=== PATIENT | male | born 1965 | race Caucasian/White ===

== ENCOUNTER 2019-03-18 07:20 | Inpatient (IN) ==
--- NOTE | 2019-03-05 14:48 | PAT Medication Instructions ---
Medication Instructions Date of Service March 05, 2019 Home Medications acetaminophen [Tylenol] 975 mg PO UD PRN 03/04/19 [History Confirmed 03/04/19] carbidopa-levodopa 1 tab PO TID 03/04/19 [History Confirmed 03/04/19] carvedilol 6.25 mg PO BID 03/04/19 [History Confirmed 03/04/19] cholecalciferol (vitamin D3) [Vitamin D3] 2,000 unit PO QAM 03/04/19 [History Confirmed 03/04/19] cyanocobalamin (vitamin B-12) 1,000 mcg IM MONTHLY 03/04/19 [History Confirmed 03/04/19] diphenhydramine HCl [Sleep Aid (diphenhydramine)] 50 mg PO HS 03/04/19 [History Confirmed 03/04/19] ferrous sulfate [iron] 325 mg PO QAM 03/04/19 [History Confirmed 03/04/19] ibuprofen 800 mg PO UD PRN 03/04/19 [History Confirmed 03/04/19] lisinopril 40 mg PO QPM 03/04/19 [History Confirmed 03/04/19] ropinirole 3 mg PO TID 03/04/19 [History Confirmed 03/04/19] rosuvastatin 10 mg PO QAM 03/04/19 [History Confirmed 03/04/19] ASK your surgeon for instructions ibuprofen 800 mg PO UD PRN 03/04/19 [History Confirmed 03/04/19] STOP taking 24 hours before surgery ropinirole 3 mg PO TID 03/04/19 [History Confirmed 03/04/19] DO NOT take the morning of surgery cholecalciferol (vitamin D3) [Vitamin D3] 2,000 unit PO QAM 03/04/19 [History Confirmed 03/04/19] cyanocobalamin (vitamin B-12) 1,000 mcg IM MONTHLY 03/04/19 [History Confirmed 03/04/19] ferrous sulfate [iron] 325 mg PO QAM 03/04/19 [History Confirmed 03/04/19] Take morning of surgery With a small sip of water, OTHERWISE NOTHING TO EAT OR DRINK AFTER MIDNIGHT: acetaminophen [Tylenol] 975 mg PO UD PRN (okay to take up to 4 hours prior to surgery if needed) carbidopa-levodopa 1 tab PO TID 03/04/19 [History Confirmed 03/04/19] carvedilol 6.25 mg PO BID 03/04/19 [History Confirmed 03/04/19] rosuvastatin 10 mg PO QAM 03/04/19 [History Confirmed 03/04/19] Take evening before surgery acetaminophen [Tylenol] 975 mg PO UD PRN (if needed) carbidopa-levodopa 1 tab PO TID 03/04/19 [History Confirmed 03/04/19] carvedilol 6.25 mg PO BID 03/04/19 [History Confirmed 03/04/19] diphenhydramine HCl [Sleep Aid (diphenhydramine)] 50 mg PO HS 03/04/19 [History Confirmed 03/04/19] lisinopril 40 mg PO QPM 03/04/19 [History Confirmed 03/04/19] Other Notes If you have any questions please call us at [phone] or [phone] or [phone] or [phone]
--- NOTE | 2019-03-06 11:01 | Anesthesiology Consultation ---
Date of Service March 06, 2019 Assessment & Plan (1) Encounter for pre-operative examination: Chart Review Chart Review: Acceptable Risk for Surgery and Patient seen in Pre Admission Testing Teaching & Discussion Pre-Anesthesia Teaching/Discussion Notes: Instructed NPO after midnight before surgery,except medications with 15 cc of water. Medication instructions provided according to the PAT guidelines. History Surgery Operation Date: 03/25/19 10:25 Proposed Procedures p L4-S1 Decompression and Fusion, Spinal Cord Monitoring - Neto Collazo DO Height/Weight Height: 5 ft 11 in Weight: 115.6 kg Allergies Allergy/AdvReac Type Severity Reaction Status Date / Time Penicillins Allergy Unknown HIVES AND Verified 03/06/19 11:16 PRURITUS "INJECTABLE DYE" Allergy Unknown PRURITUS Uncoded 03/06/19 11:16 Medications Home Medications Medication Instructions Recorded Confirmed Last Taken acetaminophen [Tylenol] 975 mg PO UD PRN 03/04/19 03/04/19 Unknown carbidopa-levodopa 1 tab PO TID 03/04/19 03/04/19 03/04/19 carvedilol 6.25 mg PO BID 03/04/19 03/04/19 03/04/19 cholecalciferol (vitamin D3) 2,000 unit PO QAM 03/04/19 03/04/19 Unknown [Vitamin D3] cyanocobalamin (vitamin B-12) 1,000 mcg IM MONTHLY 03/04/19 03/04/19 Unknown diphenhydramine HCl [Sleep Aid 50 mg PO HS 03/04/19 03/04/19 Unknown (diphenhydramine)] ferrous sulfate [iron] 325 mg PO QAM 03/04/19 03/04/19 Unknown ibuprofen 800 mg PO UD PRN 03/04/19 03/04/19 Unknown lisinopril 40 mg PO QPM 03/04/19 03/04/19 Unknown ropinirole 3 mg PO TID 03/04/19 03/04/19 03/04/19 rosuvastatin 10 mg PO QAM 03/04/19 03/04/19 Unknown Past Medical History Medical History Borderline high blood pressure Borderline high cholesterol Herniated disc lumbar Obesity Restless leg syndrome Spinal stenosis neck Exercise / Class Metabolic Activity II 4-5 Yardwork/Stairs/Walk up hill Past Family History Family History Mother Family history of multiple myeloma Family history of COPD (chronic obstructive pulmonary disease) Father Family history of colon cancer Other Patient's father is Past Surgical History Surgical History History of colonoscopy History of tonsillectomy Past Anesthesia History Other "Awareness" with colonoscopy History of PONV No Hx of PONV and Hx of Motion Sickness Social History Smoking Status: Former smoker tobacco type: cigarettes Do You Dip or Chew Tobacco: No (HX OF QUIT 21 YR AGO) Smoking End Date: Quit 25 YR AGO Hx Alcohol Use: Yes Alcohol type: beer alcohol intake frequency: a few times a week Hx Substance Use: No substance use type: does not use Review of Systems Patient denies chest pain, shortness of breath, dyspnea on exertion, cough, wheezing, palpitations. Physical Exam Vital Signs VITALS BP 129/84 P 61 TEMP 97.9 SP02 99%RA RESP 18 PHYSICAL Full neck and c-spine range of motion. Full TMJ range of motion. TMD 4 finger breaths Mallampati Score 2 Dentition: missing side/molar, caps on molars, upper front ?caps Lungs: clear throughout to auscultation Cardiac: regular rate and rhythm, no murmurs noted Spine: normal Carotid arteries: negative bruit Extremities: no edema Testing Laboratory Results 03/06/19 11:19 03/06/19 11:19 PT 9.8 Seconds (9.0-12.0) 03/06/19 11:19 INR 1.0 (0.9-1.1) 03/06/19 11:19 APTT 25.0 Seconds (21.0-31.0) 03/06/19 11:19 Urine Color Yellow 03/06/19 11:19 Urine Appearance Clear (Clear) 03/06/19 11:19 Urine pH 7.0 (4.5-7.5) 03/06/19 11:19 Ur Specific [place] 1.015 (1.000-1.030) 03/06/19 11:19 Urine Protein Negative (Negative) 03/06/19 11:19 Urine Glucose (UA) Negative (Negative) 03/06/19 11:19 Urine Ketones Negative (Negative) 03/06/19 11:19 Urine Nitrite Negative (Negative) 03/06/19 11:19 Ur Leukocyte Esterase Negative (Negative) 03/06/19 11:19 Blood Type A Positive 03/06/19 11:19 Antibody Screen NEGATIVE 03/06/19 11:19 Electrocardiogram Date: 03/06/19 Findings: + SB @ (54) Chest X-Ray Date: 03/06/19 Findings: + NAD
--- NOTE | 2019-03-06 11:49 | XRay Report ---
XR chest Pre-admission PA/Lat CLINICAL HISTORY: 53 years-old Male presenting with preoperative assessment. TECHNIQUE: PA and lateral views of the chest were obtained. COMPARISON: None. FINDINGS: Cardiac silhouette top normal in size. Lungs and pleural spaces clear. Degenerative changes of the th oracic spine. Upper abdomen normal. IMPRESSION: 1. No acute cardiopulmonary disease. ACT 112: Negative or not required by law. Electronically signed by: Abelardo Hernandez M.D. 03/06/2019 11:48 AM
[2019-03-06 13:50] LABS: Basophils # (auto) 0.04 K/uL (0-0.2); Basophils % (auto) 0.6 %; Eosinophils # (auto) 0.29 K/uL (0-0.5); Eosinophils % (auto) 4.1 %; Hemoglobin 14.2 g/dL (14.0-18.0); Immature Granulocytes # (auto) 0.01 K/uL (0.00-0.02); Immature Granulocytes % (auto) 0.1 %; Lymphocytes # (auto) 1.94 K/uL (1.2-3.4); Lymphocytes % (auto) 27.8 %; Mean Corpuscular Hemoglobin 29.7 pg (25-34); Mean Platelet Volume 10.9 fL (7.4-10.4); Monocytes # (auto) 0.53 K/uL (0.11-0.59); Monocytes % (auto) 7.6 %; Neutrophils # (auto) 4.18 K/uL (1.4-6.5); Neutrophils % (auto) 59.8 %; Platelet Count 257 K/uL (130-400); RDW Coefficient of Variation 13.3 % (11.5-14.5); RDW Standard Deviation 43.9 fL (36.4-46.3); Red Blood Count 4.78 M/uL (4.7-6.1); White Blood Count 6.99 K/uL (4.8-10.8)
[2019-03-06 13:52] LABS: Partial Thromboplastin Ratio 0.9; Prothrombin Time 9.8 Seconds (9.0-12.0)
[2019-03-06 13:53] LABS: BUN Creatinine Ratio 19.6 (10-20); Calcium 9.2 mg/dl (8.5-10.1); Creatinine Clr Calc Pharmacy 144.9 ml/min; Est GFR (African American) 121.1; Est GFR (Non-African American) 104.5; Potassium 4.3 mmol/L (3.5-5.1)
[2019-03-06 14:10] LABS: Appearance Urine Clear (Clear); Bilirubin Urine Negative (Negative); Blood Urine Negative (Negative); Color Urine Yellow; Glucose Urine UA Negative (Negative); Ketones Urine Negative (Negative); Leukocyte Esterase Urine Negative (Negative); Nitrite Urine Negative (Negative); Protein Urine Negative (Negative); Specific Gravity Urine 1.015 (1.000-1.030); Urobilinogen Urine Negative (Negative)
--- NOTE | 2019-03-07 06:03 | Electrocardiogram Report ---
Test Reason : Blood Pressure : / mmHG Vent. Rate : 054 BPM Atrial Rate : 054 BPM P-R Int : 166 ms QRS Dur : 082 ms QT Int : 442 ms P-R-T Axes : 059 051 053 degrees QTc Int : 419 ms Sinus bradycardia Otherwise normal ECG No previous ECGs available Confirmed by Rik Jimenez ([id number]) on 03/07/2019 6:02:58 AM Referred By: Neto Collazo Confirmed By:Rik Jimenez
[~2019-03-18 07:20] MED LIST: CEFAZOLIN 2000MG 2,000 MG/15 ML SYR IV SCH; CLINDAMYCIN 600 MG/54 ML BAG IV SCH; GABAPENTIN 900 MG DOSE PO SCH; LR 15ML/HR IV SCH
[2019-03-18] MEDS ORDERED: ONDANSETRON INJ 2 MG/ML 2 ML VIAL ONE (08:52)
[2019-03-18] MEDS ORDERED: GLYCOPYRROLATE 0.2 MG/ML VIAL ONE (08:52)
[2019-03-18] MEDS ORDERED: fentaNYL citrate 100 MCG/2 ML VIAL ONE ×2 (08:52→12:07)
[2019-03-18] MEDS ORDERED: DEXAMETHASONE SOD INJ 4 MG/ML VIAL ONE ×3 (08:52→12:12)
[2019-03-18] MEDS ORDERED: MIDAZOLAM HCL 1 MG/ML 2ML VIAL ONE (08:52)
[2019-03-18] MEDS ORDERED: SUCCINYLCHOLINE CHLORIDE 20 MG/ML 10 ML VIAL ONE (08:52)
[2019-03-18] MEDS ORDERED: LIDOCAINE HCL 2% 2 ML VIAL/AMP(20MG/ML) INFIL ONE (08:52)
[2019-03-18] MEDS ORDERED: PHENYLEPHRINE HCL 10 MG/ML VIAL ONE (08:52)
[2019-03-18] MEDS ORDERED: PROPOFOL IV EMULSION 10 MG/ML 20 ML VIAL IV ONE (08:52)
[2019-03-18] MEDS ORDERED: NEOSTIGMINE METHYLSULFATE 1 MG/ML 10ML VIAL ONE ×2 (08:52→09:37)
[2019-03-18] MEDS ORDERED: ePHEDrine sulfate 50 MG/ML AMP ONE (08:52)
--- NOTE | 2019-03-18 09:00 | History & Physical Bridge Note ---
Date of Service March 18, 2019 History & Physical Bridge Note I have examined the patient, reviewed the History & Physical and in the interval since the performance of the History & Physical I have noted the following changes of clinical significance: no changes noted
--- NOTE | 2019-03-18 09:01 | History & Physical Report ---
Date of Service March 18, 2019 Assessment & Plan (1) Spinal stenosis of lumbar region with radiculopathy: Lumbar decompression and fusion L4-S1 Present on Admission?: Yes History of Present Illness Chief Complaint: Back and leg pain Primary Care Provider: NO PCP This is a 53-year-old male that presents with chronic persistent back and leg pain. After failing extensive course of nonoperative care is here for surgical intervention. Allergies Allergy/AdvReac Type Severity Reaction Status Date / Time Penicillins Allergy Unknown HIVES AND Verified 03/18/19 08:01 PRURITUS "INJECTABLE DYE" Allergy Mild PRURITUS Uncoded 03/18/19 08:01 Home Medications Home Medications Medication Instructions Recorded Confirmed Type acetaminophen [Tylenol] 975 mg PO UD PRN 03/04/19 03/18/19 History carbidopa-levodopa [Sinemet] 1 tab PO TID 03/04/19 03/18/19 History carvedilol [Coreg] 6.25 mg PO BID 03/04/19 03/18/19 History cholecalciferol (vitamin D3) 2,000 unit PO QAM 03/04/19 03/18/19 History [Vitamin D3] cyanocobalamin (vitamin B-12) 1,000 mcg IM MONTHLY 03/04/19 03/18/19 History diphenhydramine HCl [Sleep Aid 50 mg PO HS 03/04/19 03/18/19 History (diphenhydramine)] ferrous sulfate [iron] 325 mg PO QAM 03/04/19 03/18/19 History ibuprofen 800 mg PO UD PRN 03/04/19 03/18/19 History lisinopril 40 mg PO QPM 03/04/19 03/18/19 History ropinirole [Requip] 3 mg PO TID 03/04/19 03/18/19 History rosuvastatin [Crestor] 10 mg PO QAM 03/04/19 03/18/19 History Past Med/Surg History Medical History Borderline high blood pressure Borderline high cholesterol Herniated disc lumbar Obesity Restless leg syndrome Spinal stenosis neck Surgical History History of colonoscopy History of tonsillectomy Family History Mother Family history of multiple myeloma Family history of COPD (chronic obstructive pulmonary disease) Father Family history of colon cancer Other Patient's father is Social History Preferred Language: Danish Communication Ability: Effective Fiscal Economist Required: No Beliefs That Will Affect Care: Lutheran Lutheran Beliefs: BUDDHIST Current Living Situation: Family and Other Current Living Situation Comment: DAUGHTER, SON AND FIANCE Other Information That Helps Us Care for You: Yes (FIANCE HANDICAPPED) Feels Safe at Home: Yes Smoking Status: Former smoker Tobacco Type: cigarettes ; Do You Dip or Chew Tobacco: No (HX OF QUIT 21 YR AGO) ; Smoking End Date: Quit 25 YR AGO ; Hx Alcohol Use: Yes Alcohol type: beer Hx Substance Use: No Physical Exam Physical Exam: Patient is alert and oriented neurologically intact. Results & Data Vital Signs (Past 12 Hours) Vital Signs Temp Pulse Resp BP Pulse Ox 03/18/19 08:11 36.5 C 63 20 142/92 H 98
[2019-03-18] MEDS ORDERED: ONDANSETRON INJ 2 MG/ML 2 ML VIAL IV PRN ×2 (09:07→13:48)
[2019-03-18] MEDS ORDERED: ATROPINE SULFATE 0.1 MG/ML 10ML SYR IV PRN (09:07)
[2019-03-18] MEDS ORDERED: ePHEDrine sulfate 50 MG/ML AMP IV PRN (09:07)
[2019-03-18] MEDS ORDERED: HYDROmorphone INJ 2 MG/ML SYR/VIAL IV PRN (09:07)
[2019-03-18] MEDS ORDERED: BUPIVACAINE/EPINEPHRINE 0.5% MPF 1:200,000 10 ML VIAL ONE ×2 (09:34→09:52)
[2019-03-18] MEDS ORDERED: BACITRACIN INJ 50,000 UNIT VIAL ONE (09:35)
[2019-03-18] MEDS ORDERED: FLOSEAL HEMOSTATIC MATRIX 10ML TOP ONE (10:32)
[2019-03-18] MEDS ORDERED: ALBUMIN HUMAN 5% 12.5 GM/250 ML VIAL IV ONE (11:33)
[2019-03-18] MEDS ORDERED: HYDROmorphone INJ 2 MG/ML SYR/VIAL ONE (12:07)
[2019-03-18] MEDS ORDERED: ROCURONIUM BROMIDE 10 MG/ML 5 ML VIAL ONE (12:12)
--- NOTE | 2019-03-18 12:15 | Operative Report ---
Post Operative Report Pre & Post Diagnosis Operation Date: 03/18/19 09:05 Pre-Op Diagnosis: Spinal Stenosis, Lumbar Region Post-Op Diagnosis: Spinal Stenosis, Lumbar Region I identified the patient and participated in the time-out.: Yes Procedure Operation Date: 03/18/19 09:05 Actual Procedures #1 lumbar decompression with bilateral medial facetectomies and foraminotomies L3-4 L4-5 L5-S1. #2 posterior spinal fusion L4-5 L5-S1. #3 placed posterior instrumentation L4-5 L5-S1. #4 interbody fusion L4-5 L5-S1. #5 placement titanium 13 x 26 mm cage at L4-5 and 9 x 26 mm cage at L5-S1. #6 placement locally harvested morselized autograft in the posterior lateral gutters. #7 placement infuse collagen sponge master graft in the posterior lateral gutters and ostial amp and interbody space. Surgeon Neto Collazo, DO Hr Operations Advisor Sarah Harley Estimated Blood Loss 350 Findings See Below The patient is 5 foot 11 inches tall weighing over 118 kg with a BMI in excess of 36. The patient's body habitus did add significant technical difficulty adding at least 40% increase in operative time. Specimens None Indications This is a 53-year-old male who presents above-mentioned diagnosis after failed extensive course of nonoperative care elected with above-mentioned procedure. Description of Procedure Patient was met with identified informed consent obtained. Patient was then taken to the operative suite underwent intubation placed in a prone position on the [place] table on top of the [place] frame. All bony prominences well-padded eyes inspected to ensure no external pressure placed upon the. This point the lumbar spine was prepped and draped in normal sterile fashion. Sharp dissection with the assistance of Bovie cautery was performed down to and exposing the lamina and transverse processes of L4-L5 and sacral ala bilaterally. From a caudal cephalad fashion complete laminectomy of L5 L4 and partial laminectomy of L3 was performed including bilateral medial facetectomies and foraminotomies addressing severe stenosis as well as a massive foraminal disc condition at L4-5 on the right. After complete decompression pedicle screws were placed in L4-L5 and S1 levels bilaterally with assistance of fluoroscopy and proper sized chidi placed. By way of a transfer approach the right complete discectomy of L5-S1 was performed endplates coated to subcortical bleeding bone and a 9 x 26 mm titanium cage with osteo-bone graft position. The procedure at L4-[address] of a transforaminal portion right complete discectomy performed endplates curetted to subcortical bleeding bone and a 13 x 26 mm titanium cage filled with osteo-bone graft tapped in position. The rods were then locked in final position bilaterally. The transverse processes of L4-L5 and sacral ala bur to subcortical bleeding bone. Infuse collagen sponge master graft local autograft placed in the posterior lateral gutters. 15 round ADELAIDE drain inserted. The incision was then closed with 1 Vicryl in the fascia 2-0 Vicryl subcutaneously and 4 Monocryl for final skin closure. Steri-Strips dressings placed. Patient will continue PACU stable addition. Please note Sarah Harley present at the entire procedure involved the patient positioning complex portions of the surgery and final skin closure. Lastly spinal cord monitoring was utilized that procedure no changes noted. I attest to the content of the Intraoperative Record and any orders documented therein. Any exceptions are noted below.
--- NOTE | 2019-03-18 12:39 | Fluoroscopy Report ---
LUMBAR SPINE, INTRAOPERATIVE FLUOROSCOPY HISTORY: L4-S1 decompression and fusion. FLUOROSCOPY TIME: 23 seconds. FINDINGS: Intraoperative fluoroscopy was provided for the lumbar spine. 2 fluoroscopic spot images we re obtained. Posterior decompression and fusion from L4 through S1 with pedicle screws and rods. The hardware appears intact. IMPRESSION: Fluoroscopy provided for a L4-S1 posterior decompression and fusion. ACT 112: Negative or not required by law. Electronically signed by: Nayan Perdue M.D. 03/18/2019 12:37 PM
[2019-03-18] MEDS: fentaNYL citrate 100 MCG/2 ML VIAL IV PRN ×2 (12:58→13:03)
--- NOTE | 2019-03-18 13:14 | Anesthesiology Progress Note ---
Date of Service March 18, 2019 Anesthesia Post Procedure Vital Signs Vital Signs: Temp Pulse Pulse Resp BP Pulse Ox 03/18/19 13:05 61 14 107/57 L 95 03/18/19 12:55 62 14 115/61 98 03/18/19 12:45 79 14 115/61 97 03/18/19 12:35 36.8 C 75 16 109/62 97 03/18/19 08:11 36.5 C 63 20 142/92 H 98 Pain Intensity Lower Back: Pain Intensity: 4 Transfer of Care Handoff Completed per policy Notes Mental Status: alert / awake / arousable and participated in evaluation Patient Amnestic to Procedure: Yes Nausea / Vomiting: adequately controlled Pain: adequately controlled Airway Patency, RR, SpO2: stable & adequate BP & HR: stable & adequate Hydration State: stable & adequate Anesthetic Complications: no major complications apparent and Pt Satisfied with anesthetic care
[2019-03-18] MEDS ORDERED: LORazepam 0.5 MG TAB PO PRN (13:48)
[2019-03-18] MEDS ORDERED: PROMETHAZINE HCL 12.5 MG in SODIUM CHLORIDE 0.9% 50 ML IV PRN (13:48)
[2019-03-18] MEDS ORDERED: FAMOTIDINE 20 MG TAB PO PRN (13:48)
[2019-03-18] MEDS ORDERED: SOD PHOSPHATE/SOD BIPHOSPHATE ENEMA 132 ML BTL PR PRN (13:48)
[2019-03-18] MEDS ORDERED: ONDANSETRON 4 MG OD TAB PO PRN (13:48)
[2019-03-18] MEDS ORDERED: METOCLOPRAMIDE HCL INJ 5 MG/ML 2 ML VIAL IV PRN (13:48)
[2019-03-18] MEDS ORDERED: DO NOT ADMINISTER FLU VACCINE PRN (13:48)
[2019-03-18] MEDS ORDERED: NALOXONE HCL 0.4 MG/1 ML VIAL/CARP IV PRN (13:48)
[2019-03-18] MEDS ORDERED: HYDROmorphone INJ 1 MG/ML SYRINGE IV PRN (13:48)
[2019-03-18] MEDS ORDERED: LORazepam 0.5 MG/1 ML VIAL IV PRN (13:48)
[2019-03-18] MEDS ORDERED: ACETAMINOPHEN 500 MG TAB PO PRN (13:48)
[2019-03-18] MEDS ORDERED: HYDROmorphone INJ 0.5 MG/0.5 ML SYR IV PRN (13:48)
[2019-03-18] MEDS ORDERED: MAGNESIUM HYDROXIDE SUSP 30 ML UDC PO PRN (13:48)
[2019-03-18] MEDS ORDERED: ACETAMINOPHEN 1,000 MG/100 ML VIAL IV PRN (13:48)
[2019-03-18] MEDS ORDERED: DO NOT ADMINISTER PNEUMOCOCCAL VACCINE PRN (13:48)
[2019-03-18] MEDS ORDERED: bisacodyL 10 MG SUPP PR PRN (13:48)
[2019-03-18] MEDS: LACTATED RINGER'S 1,000 ML IV SCH ×2 (13:50→19:56)
[2019-03-18] MEDS: ROPINIROLE HCL 1 MG TABLET PO SCH ×2 (15:22→21:19)
[2019-03-18] MEDS: CARBIDOPA/LEVODOPA 25/100MG TAB PO SCH ×2 (15:23→21:19)
[2019-03-18] MEDS: TRAMADOL HCL 50 MG TABLET PO PRN (16:59)
[2019-03-18] MEDS ORDERED: NURSING DECISION MEDICATION ONE (17:00)
[2019-03-18] MEDS ORDERED: COUGH DROP (SUGAR FREE) LOZ 24 LOZ/1 BOX BUCCAL PRN (17:12)
[2019-03-18] MEDS: CLINDAMYCIN 600 MG in DEXTROSE 5% 50 ML IV SCH (18:21)
[2019-03-18] MEDS: KETOROLAC 30 MG/ML VIAL IV SCH ×2 (18:21→23:42)
[2019-03-18] MEDS: carvediloL 6.25 MG TAB PO SCH (21:17)
[2019-03-18] MEDS: DOCUSATE SODIUM/SENNA 50/8.6MG TAB PO SCH (21:19)
[2019-03-18] MEDS: lisinopriL 40 MG TAB PO SCH (21:20)
[2019-03-19] MEDS: CLINDAMYCIN 600 MG in DEXTROSE 5% 50 ML IV SCH (02:26)
[2019-03-19] MEDS: KETOROLAC 30 MG/ML VIAL IV SCH ×2 (05:26→11:47)
[2019-03-19] MEDS: POLYETHYLENE (MIRALAX) 17 GM PACK PO SCH ×4 (05:26→23:43)
[2019-03-19 07:00] LABS: Basophils # (auto) 0.01 K/uL (0-0.2); Basophils % (auto) 0.1 %; Hematocrit (blood only) 33.4 % (42-52); Hemoglobin 11.1 g/dL (14.0-18.0); Immature Granulocytes # (auto) 0.03 K/uL (0.00-0.02); Immature Granulocytes % (auto) 0.2 %; Lymphocytes % (auto) 7.9 %; Mean Corpuscular Hemoglobin 29.6 pg (25-34); Mean Corpuscular Hgb Conc 33.2 g/dL (32-36); Mean Corpuscular Volume 89.1 fL (80-100); Mean Platelet Volume 9.9 fL (7.4-10.4); Monocytes # (auto) 0.86 K/uL (0.11-0.59); Monocytes % (auto) 6.8 %; Neutrophils # (auto) 10.78 K/uL (1.4-6.5); Platelet Count 193 K/uL (130-400); RDW Standard Deviation 41.8 fL (36.4-46.3); Red Blood Count 3.75 M/uL (4.7-6.1); White Blood Count 12.68 K/uL (4.8-10.8)
[2019-03-19 07:32] LABS: BUN Creatinine Ratio 22.2 (10-20); Calcium 8.3 mg/dl (8.5-10.1); Est GFR (African American) 109.8; Est GFR (Non-African American) 94.7; Potassium 4.5 mmol/L (3.5-5.1)
[2019-03-19] MEDS: ALUMINUM/MAGNESIUM SUSP 30 ML UDC PO PRN (08:17)
--- NOTE | 2019-03-19 08:37 | Anesthesiology Progress Note ---
Date of Service March 19, 2019 Anesthesia Post Procedure Vital Signs Vital Signs: Temp Pulse Pulse Resp BP Pulse Ox 03/19/19 07:40 36.6 C 92 H 16 139/76 99 03/19/19 03:30 36.7 C 93 H 16 125/71 94 03/18/19 22:58 36.7 C 90 16 121/67 96 03/18/19 20:41 36.4 C L 98 H 17 98/63 L 95 03/18/19 16:54 99 H 17 113/62 94 03/18/19 15:43 36.5 C 97 H 18 117/69 95 03/18/19 15:00 98 H 16 125/78 98 03/18/19 14:09 79 16 128/68 98 03/18/19 13:50 36.9 C 78 16 124/78 99 03/18/19 13:15 36.8 C 59 L 14 109/59 L 95 03/18/19 13:05 61 14 107/57 L 95 03/18/19 12:55 62 14 115/61 98 03/18/19 12:45 79 14 115/61 97 03/18/19 12:35 36.8 C 75 16 109/62 97 Pain Intensity Lower Back: Pain Intensity: 4 Notes Mental Status: alert / awake / arousable and participated in evaluation Patient Amnestic to Procedure: Yes Nausea / Vomiting: adequately controlled Pain: adequately controlled Airway Patency, RR, SpO2: stable & adequate BP & HR: stable & adequate Hydration State: stable & adequate Anesthetic Complications: no major complications apparent and Pt Satisfied with anesthetic care
[2019-03-19] MEDS: CHOLECALCIFEROL 1,000 UNITS 25 MCG TAB PO SCH (08:59)
[2019-03-19] MEDS: carvediloL 6.25 MG TAB PO SCH ×2 (08:59→20:47)
[2019-03-19] MEDS: CARBIDOPA/LEVODOPA 25/100MG TAB PO SCH ×3 (09:00→20:48)
[2019-03-19] MEDS ORDERED: CYANOCOBALAMIN 1000 MCG/ML VIAL IM ONE (09:00)
[2019-03-19] MEDS: ROPINIROLE HCL 1 MG TABLET PO SCH ×3 (09:01→20:47)
[2019-03-19] MEDS: FERROUS SULFATE 325 MG TAB PO SCH (09:01)
[2019-03-19] MEDS: ROSUVASTATIN CALCIUM 10 MG TAB PO SCH (09:01)
--- NOTE | 2019-03-19 09:37 | Orthopedic Progress Note ---
Date of Service March 19, 2019 Assessment & Plan (1) Spinal stenosis of lumbar region with radiculopathy: At this time we will continue physical therapy monitor his ADLEAIDE output hopefully discharge home next few days. Present on Admission?: Yes Subjective Back pain controlled leg symptoms markedly improved. Physical Exam Physical Exam: Patient is good strength testing appears comfortable. Results & Data Vital Signs (Past 12 Hours) Vital Signs Temp Pulse Resp BP Pulse Ox 03/19/19 07:40 36.6 C 92 H 16 139/76 99 03/19/19 03:30 36.7 C 93 H 16 125/71 94 03/18/19 22:58 36.7 C 90 16 121/67 96
[2019-03-19] MEDS: DOCUSATE SODIUM/SENNA 50/8.6MG TAB PO SCH (20:48)
[2019-03-19] MEDS: lisinopriL 40 MG TAB PO SCH (20:49)
[2019-03-20] MEDS: TRAMADOL HCL 50 MG TABLET PO PRN (01:25)
[2019-03-20] MEDS: ALUMINUM/MAGNESIUM SUSP 30 ML UDC PO PRN ×2 (01:26→23:39)
[2019-03-20] MEDS: POLYETHYLENE (MIRALAX) 17 GM PACK PO SCH ×4 (05:27→23:39)
[2019-03-20] MEDS: OXYCODONE HCL IR 5 MG TAB (IMMEDIATE RELEASE) PO PRN ×3 (07:33→19:29)
[2019-03-20] MEDS: CARBIDOPA/LEVODOPA 25/100MG TAB PO SCH ×3 (09:19→21:29)
[2019-03-20] MEDS: ROPINIROLE HCL 1 MG TABLET PO SCH ×3 (09:19→21:30)
[2019-03-20] MEDS: carvediloL 6.25 MG TAB PO SCH ×2 (09:20→21:28)
[2019-03-20] MEDS: FERROUS SULFATE 325 MG TAB PO SCH (09:20)
[2019-03-20] MEDS: ROSUVASTATIN CALCIUM 10 MG TAB PO SCH (09:20)
[2019-03-20] MEDS: CHOLECALCIFEROL 1,000 UNITS 25 MCG TAB PO SCH (09:20)
--- NOTE | 2019-03-20 09:30 | Orthopedic Progress Note ---
Date of Service March 20, 2019 Assessment & Plan (1) Spinal stenosis of lumbar region with radiculopathy: This time we will continue physical therapy monitor his ADELAIDE output anticipate discharge home tomorrow. Present on Admission?: Yes Subjective Back pain controlled leg symptoms improved. Physical Exam Physical Exam: Patient is good strength testing. Appears comfortable. Results & Data Vital Signs (Past 12 Hours) Vital Signs Temp Pulse Pulse Resp BP Pulse Ox 03/20/19 09:16 71 107/63 03/20/19 07:40 36.8 C 76 20 107/70 98 03/19/19 23:57 36.8 C 76 15 151/80 H 96
[2019-03-20] MEDS: DOCUSATE SODIUM/SENNA 50/8.6MG TAB PO SCH (21:29)
[2019-03-20] MEDS: lisinopriL 40 MG TAB PO SCH (21:29)
[2019-03-21] MEDS: POLYETHYLENE (MIRALAX) 17 GM PACK PO SCH ×2 (06:12→10:42)
[2019-03-21] MEDS: OXYCODONE HCL IR 5 MG TAB (IMMEDIATE RELEASE) PO PRN ×2 (07:24→13:22)
[2019-03-21] MEDS: carvediloL 6.25 MG TAB PO SCH (08:30)
[2019-03-21] MEDS: CARBIDOPA/LEVODOPA 25/100MG TAB PO SCH ×2 (08:30→13:23)
[2019-03-21] MEDS: ROSUVASTATIN CALCIUM 10 MG TAB PO SCH (08:30)
[2019-03-21] MEDS: FERROUS SULFATE 325 MG TAB PO SCH (08:30)
[2019-03-21] MEDS: ROPINIROLE HCL 1 MG TABLET PO SCH ×2 (08:31→13:22)
[2019-03-21] MEDS: CHOLECALCIFEROL 1,000 UNITS 25 MCG TAB PO SCH (08:31)
[2019-03-21] MEDS ORDERED: KETOROLAC 30 MG/ML VIAL IV ONE (10:23)
--- NOTE | 2019-03-21 10:42 | Discharge Summary ---
Date of Service March 21, 2019 Admission HPI Per Admitting Provider This is a 53-year-old male that presents with chronic persistent back and leg pain. After failing extensive course of nonoperative care is here for surgical intervention. Principal Diagnosis Lumbar spinal stenosis with radiculopathy Discharge Data Allergies Allergy/AdvReac Type Severity Reaction Status Date / Time Penicillins Allergy Unknown HIVES AND Verified 03/18/19 08:01 PRURITUS "INJECTABLE DYE" Allergy Mild PRURITUS Uncoded 03/18/19 08:01 Consultations 03/18/19 13:48 Consult Case Management - Discharge Planning Routine Procedures Performed Operation Date: 03/18/19 09:05 Actual Procedures p L4-S1 Decompression And Fusion, Spinal Cord Monitoring(Not Applicable) - Neto Collazo DO Ordered Studies 03/18/19 09:05 FL fluoroscopy <1hr Routine FL lumbar spine 2-3V Routine Hospital Course (1) Spinal stenosis of lumbar region with radiculopathy: Patient went lumbar decompression fusion tolerance was taken to orthopedic for postoperative postop day 1 his leg symptoms are markedly improved. He progressed to postop day 2 on postop day #3 ADELAIDE drain decreased appropriately. He had excellent strength testing.. Pain well controlled. Subsequently discharged home. Discharge orders instructions from the chart for further review. Total Time Total Time Spent Total Time Spent (In Minutes): 20 minutes Discharge Plan Discharge Items Patient Disposition: Home - Self-Care Reason For Visit: Spinal Stenosis, Lumbar Region Discharge Diagnosis: Lumbar spinal stenosis with radiculopathy Activity: As commented below Non-emergency contact: Primary Care Provider Call non-emergency contact if: you have any medication questions Follow-up/Referrals: PCP,NO [Primary Care Provider] - Diet: Regular Addtl Attending Provider Instructions: ACTIVITY RECOMMENDATIONS: SELF CARE INSTRUCTIONS AFTER THORACIC/LUMBAR FUSIONS 1. You may walk to your tolerance. It is good exercise for your legs and back. Expect some back and intermittent leg aches and pains. 2. You may perform "counter-top" level activities (make a sandwich, michael with a project, etc.). 3. No bending or lifting of more than 10 pounds or back twisting of any nature (roll like a log when turning in bed). 4. You may ride in a car for 20-30 minutes at a time. No driving until after your first visit with your doctor. 5. Frequent changes of position and restricting sitting to 30 minutes at a time will help limit the amount of back spasms and stiffness you may experience. 6. You may discontinue the use of ambulatory aids (cane, crutches, etc.) once your strength and confidence allow. 7. You may plastic printer the shower and let water strike your incision when you arrive home at least once daily. Do not take a tub bath, sit in a hot tub or go into a swimming pool until after your first recheck in the office. SPECIAL CARE INSTRUCTIONS: VERY IMPORTANT TO READ AND REVIEW A. Your surgical incision has been closed with a cosmetic suture under the skin that will dissolve in about 6 weeks. In 14 days, you can use a pair of clean scissors and cut the suture that is left outside of the skin at the ends of your incision. 1. The small skin tapes can be removed 7 days after surgery if they have not fallen off by that point. 2. You may keep the wound open to air as much as possible to promote healing after post-op day number 5 unless told otherwise by your doctor. 3. If you think the wound looks like it is becoming infected (redness or worsening drainage) and/or you are experiencing fever, chill or worsening back pain and muscle spasms, contact the office so that we may evaluate you as soon as possible. B. Complications are uncommon, but please contact us if you have any signs or symptoms of: 1. wound infection (fever higher than 102.5 degrees F, redness, separation o f wound, drainage, or increasing pain from the incision) 2. blood clots in legs (pain, swelling, redness and warmth in legs) 3. urinary tract infection (fever higher than 102.5 degrees F, burning upon urination or increased frequency of urination) 4. nerve problems (inability to walk on your toes or heels, numbness, loss of bowel or bladder control) 5. any other symptoms that concern you C. Please call the office at if you have any concerns or questions about your operation or recovery. D. No smoking! Smoking drastically decreases the chance of a solid fusion. E. Do not take any anti-inflammatory medications (Indocin, Advil, Motrin, Aspi rin, Naprosyn, etc.) as these may inhibit the chance of a solid fusion. Tylenol is okay to take for pain. MANAGING PAIN AFTER SPINAL SURGERY 1. Narcotic medication is intended for short-term use and will be provided for surgical pain. Surgical pain usually lasts for a period of 4-6 weeks. Narcotic medication includes Percocet, Vicodin, Darvocet, Tylenol #3 or Lortab. 2. Longer-term pain is more appropriately treated with non-narcotic medication such as Tylenol ES. 3. Muscle spasm is not appropriately treated with narcotics. Muscle relaxers such as Soma, Flexeril or Skelaxin can be used along with Tylenol ES. 4. Remember that we all live with some "aches and pains". This is not unusual or uncommon after an injury or as we get older. a. Back pain is expected and may include muscle spasms for 4 to 6 weeks after surgery. The pain should gradually improve. If the pain worsens for no apparent reason, please contact the office. b. Intermittent leg pain may also be experienced and should not be concerned about unless it worsens for no apparent reason. If so, please contact the office. 5. We will provide appropriate medication within the normal guidelines of their prescribed use. We will also be very cautious and aware of potential abuse and extended duration of patients' medication needs. a. Pain medications are for your comfort and to assist with sleep and rest so that the tissue can heal. They are not provided in order to return to normal activity and should not be used through the day. To do so or worsening pain at night can result from ongoing tissue damage and development of tolerance to the prescribed medicine. 6. Please allow 2-3 days to process refills. Prescriptions will not be mailed but must be picked up at the office. FOLLOW UP VISIT: Keep your scheduled follow-up appointment. Any questions, please call the office at . Pending Studies at Discharge: No Stand-Alone Forms: [employer], Smoking Cessation Medications and DC Order Prescriptions: New tramadol 50 mg tablet 50 mg PO Q6H PRN (Reason: pain, moderate) Qty: 30 RF: 0 oxycodone 5 mg tablet 5 mg PO Q6H PRN (Reason: pain, severe) Qty: 30 RF: 0 Continued carvedilol [Coreg] 6.25 mg Tablet 6.25 mg PO BID RF: 0 diphenhydramine HCl [Sleep Aid (diphenhydramine)] 50 mg Capsule 50 mg PO HS RF: 0 ropinirole [Requip] 3 mg Tablet 3 mg PO TID RF: 0 ferrous sulfate [iron] 325 mg (65 mg iron) Tablet 325 mg PO QAM RF: 0 carbidopa-levodopa [Sinemet] 25-100 mg Tablet 1 tab PO TID RF: 0 lisinopril 40 mg Tablet 40 mg PO QPM RF: 0 cholecalciferol (vitamin D3) [Vitamin D3] 25 mcg (1,000 unit) Capsule 2,000 unit PO QAM RF: 0 rosuvastatin [Crestor] 10 mg Tablet 10 mg PO QAM RF: 0 ibuprofen 800 mg Tablet 800 mg PO UD PRN (Reason: Pain) RF: 0 acetaminophen [Tylenol] 325 mg Capsule 975 mg PO UD PRN (Reason: Pain) RF: 0 cyanocobalamin (vitamin B-12) 1,000 mcg/mL Kit 1,000 mcg IM MONTHLY RF: 0 Discharge Orders: Discharge Order (Routine); Ordered 03/21/19 Ordered By: Neto Collazo Admission Data Admit Date/Time: 03/18/19 12:38 Attending Provider: Neto Collazo Admit Provider: Neto Collazo Primary Care Provider: PCP,NO Other Interventions: Discharge Summary Assessment (RN) Last Done: 03/21/19 10:24
== END 2019-03-21 13:52 | disposition home or self-care (01) | DRG 455 ==
LOC: ASU 07:20 → 3E 12:38